=== PATIENT | female | born 1980 | race Caucasian/White ===

== ENCOUNTER 2018-09-25 19:11 | Outpatient (CLI) | payer OTHER ==
[2018-09-25 20:29] LABS: ADD UMIC YES; UR ASCORBIC ACID 40 mg/dL (NEGATIVE); UR BILIRUBIN (Dip) NEGATIVE (NEGATIVE); UR BLOOD (Dip) 1+ mg/dL (NEGATIVE); UR CLARITY SLIGHTLY CLOUDY (CLEAR); UR COLOR YELLOW (YELLOW); UR GLUCOSE (Dip) NEGATIVE (NEGATIVE); UR KETONES (Dip) 2+ mg/dL (NEGATIVE); UR LEUKOCYTE ESTERASE (Dip) NEGATIVE Leu/ul (NEGATIVE); UR MUCUS FEW /HPF (NONE SEEN); UR NITRITE (Dip) NEGATIVE (NEGATIVE); UR RBC 1 /HPF (0-5); UR SPECIFIC GRAVITY (Dip) 1.028 (1.003-1.030); UR SQUAMOUS EPITHELIAL CELL FEW /HPF (FEW); UR TOTAL PROTEIN (Dip) 2+ mg/dl (NEGATIVE); UR UROBILINOGEN (Dip) 1+ mg/dL (NEGATIVE); UR WBC 3 /HPF (0-5)
== END 2018-09-25 21:10 | disposition home or self-care (01) ==
LOC: OBT 19:11 → L-D 19:12 → OBT 21:10
DX: O46.8X3 Other antepartum hemorrhage, third trimester (principal); O09.513 Supervision of elderly primigravida, third trimester; Z3A.36 36 weeks gestation of pregnancy
CPT/HCPCS: 76818; 81001

== ENCOUNTER 2018-09-29 13:36 | Inpatient (IN) | payer OTHER ==
[2018-09-29] MEDS ORDERED: MISOPROSTOL 200 MCG TAB PR ×2 (15:00→22:30)
[2018-09-29] MEDS ORDERED: CARBOPROST 250 MCG INJ IM ×2 (15:00→22:30)
[2018-09-29] MEDS ORDERED: METHYLERGONOVINE 0.2 MG INJ IM ×2 (15:00→22:30)
[2018-09-29 15:03] LABS: ADD MAN DIFF? NO
[2018-09-29 15:09] LABS: WHITE BLOOD COUNT 11.4 10^3/ul (4.8-10.8)
[2018-09-29 15:09] LABS: BASOPHILS % 0.1 % (0.0-2.0); EOSINOPHILS % 0.1 % (0.0-7.0); HEMATOCRIT 40.1 % (37.0-47.0); LYMPHOCYTES # 1.7 10^3/ul (0.8-2.9); LYMPHOCYTES % 14.9 % (15.0-51.0); MEAN CORPUSCULAR HEMOGLOBIN 32.3 pg (29.0-33.0); MEAN CORPUSCULAR HGB CONC 34.9 g/dl (32.0-37.0); MEAN CORPUSCULAR VOLUME 92.6 fl (82.0-101.0); MEAN PLATELET VOLUME 10.3 fl (7.4-10.4); MONOCYTE # 0.4 10^3/ul (0.3-0.9); MONOCYTES % 3.6 % (0.0-11.0); NEUTROPHIL # 9.2 10^3/ul (1.6-7.5); NEUTROPHILS % 80.9 % (39.0-77.0); PLATELET COUNT 231 10^3/UL (140-415); RED BLOOD COUNT 4.33 10^6/ul (4.20-5.40); RED CELL DISTRIBUTION WIDTH 12.3 % (11.5-14.5)
[2018-09-29 15:29] LABS: INR 0.93; PROTIME 12.5 Sec (11.9-14.9)
[2018-09-29] MEDS ORDERED: CEFAZOLIN 2 GM/50 ML (PMX) 50 ML IVPB (16:15)
[2018-09-29] MEDS: LACTATED RINGER'S 1,000 ML IV* ×2 (16:31→17:21)
[2018-09-29] MEDS: AMPICILLIN 2 GM/NS (PMX) 100 ML IV (16:32)
[2018-09-29] MEDS ORDERED: FENTAnyl 50 MCG/ML VIAL (17:46)
[2018-09-29] MEDS ORDERED: ONDANSETRON 4 MG INJ (17:46)
[2018-09-29] MEDS ORDERED: morphine SULFATE/PF (10 MG/10 ML) INJ (17:46)
[2018-09-29] MEDS ORDERED: FAMOTIDINE 20 MG INJ (17:46)
[2018-09-29] MEDS ORDERED: OXYTOCIN 30 UNITS/LR 500 ML IV (18:04)
[2018-09-29] MEDS ORDERED: ZOLPIDEM 5 MG TAB PO (18:30)
[2018-09-29] MEDS ORDERED: NALOXONE (0.4 MG/ML) INJ IV (18:30)
[2018-09-29] MEDS ORDERED: DIPHENHYDRAMINE 50 MG INJ IV (18:30)
[2018-09-29] MEDS ORDERED: HYDROmorphONE 0.5 MG/0.5 ML SYG IV ×2 (18:30)
[2018-09-29] MEDS ORDERED: ONDANSETRON 4 MG INJ IV (18:30)
[2018-09-29] MEDS: CEFAZOLIN 2 GM/50 ML (PMX) 50 ML IVPB (21:00)
[2018-09-29] MEDS: OXYTOCIN 30 UNITS/LR 500 ML IV (21:09)
[2018-09-29 22:30] LABS: RAPID PLASMA REAGIN NONREACTIVE (NR)
[2018-09-30] MEDS: OXYTOCIN 30 UNITS/LR 500 ML IV ×2 (01:00→05:35)
[2018-09-30] MEDS: CEFAZOLIN 1 GM/50 ML (PMX) 50 ML IVPB (03:10)
[2018-09-30] MEDS: IBUPROFEN 600 MG TAB PO ×5 (05:43→23:33)
[2018-09-30 08:19] LABS: ADD MAN DIFF? NO
[2018-09-30 08:21] LABS: BASOPHILS % 0.1 % (0.0-2.0); EOSINOPHILS % 0.1 % (0.0-7.0); HEMATOCRIT 32.2 % (37.0-47.0); HEMOGLOBIN 11.2 g/dl (12.0-16.0); LYMPHOCYTES # 1.6 10^3/ul (0.8-2.9); LYMPHOCYTES % 11.7 % (15.0-51.0); MEAN CORPUSCULAR HEMOGLOBIN 32.8 pg (29.0-33.0); MEAN CORPUSCULAR HGB CONC 34.8 g/dl (32.0-37.0); MEAN CORPUSCULAR VOLUME 94.4 fl (82.0-101.0); MEAN PLATELET VOLUME 9.9 fl (7.4-10.4); MONOCYTE # 0.5 10^3/ul (0.3-0.9); MONOCYTES % 3.2 % (0.0-11.0); NEUTROPHIL # 11.8 10^3/ul (1.6-7.5); NEUTROPHILS % 84.5 % (39.0-77.0); PLATELET COUNT 169 10^3/UL (140-415); RED BLOOD COUNT 3.41 10^6/ul (4.20-5.40); RED CELL DISTRIBUTION WIDTH 12.7 % (11.5-14.5)
[2018-09-30] MEDS: SENNA/DOCUSATE NA (8.6MG/50MG) TAB PO ×2 (08:33→20:50)
[2018-09-30] MEDS: PRENATAL VITAMIN PO (08:33)
[2018-09-30 09:17] LABS: HEPATITIS B SURFACE ANTIGEN NEGATIVE (NEGATIVE)
[2018-09-30] MEDS: LACTATED RINGER'S 1,000 ML IV* (09:44)
[2018-09-30] MEDS: KETOROLAC 30 MG INJ IV (11:24)
[2018-09-30] MEDS: LANOLIN 7 GM TUBE TOP (16:27)
[2018-09-30] MEDS: HYDROCODONE/APAP (5/325) TAB PO (19:59)
[2018-10-01] MEDS: IBUPROFEN 600 MG TAB PO ×3 (05:28→17:18)
[2018-10-01] MEDS: PRENATAL VITAMIN PO (09:03)
[2018-10-01] MEDS: HYDROCODONE/APAP (5/325) TAB PO ×3 (09:03→23:12)
[2018-10-01] MEDS: SENNA/DOCUSATE NA (8.6MG/50MG) TAB PO ×2 (09:03→21:14)
[2018-10-01] MEDS: NA PHOSPHATE/BIPHOS 133 ML ENEMA PR ×2 (11:30→12:00)
[2018-10-02] MEDS: IBUPROFEN 600 MG TAB PO ×3 (00:53→11:42)
[2018-10-02] MEDS: HYDROCODONE/APAP (5/325) TAB PO (03:35)
[2018-10-02] MEDS: SENNA/DOCUSATE NA (8.6MG/50MG) TAB PO (09:53)
[2018-10-02] MEDS: PRENATAL VITAMIN PO (09:53)
[2018-10-02] MEDS: DIPHTH/TET/ACEL PERTUSS (ADULT) 0.5 ML VIAL IM* (09:53)
== END 2018-10-02 13:20 | disposition home or self-care (01) | DRG 788 ==
LOC: OBT 13:36 → L-D 13:36 → OBT 14:00 → L-D 14:00 → PP1 22:39
PROVIDERS: Obstetrics & Gynecology
PROC: 10D00Z1 Extraction of Products of Conception, Low, Open Approach (ICD-10-PCS; principal; 2018-09-29 18:00)
DX: O42.92 Full-term premature rupture of membranes, unspecified as to length of time between rupture and onset of labor (principal); O34.211 Maternal care for low transverse scar from previous cesarean delivery; Z37.0 Single live birth; Z3A.37 37 weeks gestation of pregnancy
CPT/HCPCS: 85025; 85610; 85730; 86592; 86850; 86900; 86901; 87340; 90715; 99464